=== PATIENT | female | born 2000 | race Caucasian/White ===

== ENCOUNTER 2023-03-09 16:17 | Emergency (ER) | payer OTHER, SELFPAY ==
--- NOTE | 2023-03-09 16:19 | ED.URI ---
HPI - URI/Sore Throat General Chief Complaint: Upper Respiratory Infection Stated Complaint: chest pain/sob/headache/sore throat Time Seen by Provider: 03/09/23 16:18 Source: patient Mode of arrival: ambulatory Limitations: no limitations History of Present Illness HPI Narrative: Radha is a 22-year-old female patient presenting to the clinic today with complaints of chest heaviness, shortness of breath, headache, and sore throat x3 days. She reports no fever or chills. Cough is nonproductive. States that her chest discomfort is a 6/10 and the shortness of breath is about a 4 to 5/10. Denies any nasal congestion or palpitations. History of asthma as a child. States she has had this before and has been to the ER twice for her chest heaviness and shortness of breath and she is supposed to follow up with a warrant server and wear a Holter monitor. MD elicited complaint: sore throat and nasal congestion Related Data Allergies Allergy/AdvReac Type Severity Reaction Status Date / Time pineapple Allergy Severe Anaphylactic Verified 03/09/23 16:47 Shock cefdinir Allergy Unknown Hives / Verified 03/09/23 16:47 Red Face Review of Systems Review of Systems: Pertinent positives per HPI. Patient denies any fever, chills, rash, visual changes, dizziness, palpitations, nausea, vomiting, diarrhea, constipation, abdominal pain, or any urinary issues. PMFSH Comments At the time of my signature, I reviewed and agree with the nursing past medical, surgical, social, and family history. There is no relevant family history pertinent to the patient complaint. Exam Narrative: General: Well-developed, well nourished, in no apparent distress Head: Normocephalic, atraumatic Eyes: Pupils equally round and reactive to light bilaterally, EOM intact, sclera and conjunctive clear, no discharge, lids normal Ears: TMs intact and clear, ear canals clear, no drainage, grossly hearing normal. Nose: Nares patent, no discharge, no inflammation, no sinus tenderness. Mouth: Oral pharynx red without lesions or masses, good dentition, MMM. Neck: Supple, trachea midline, no enlargement of anterior or posterior cervical nodes, no thyroid masses or goiter palpable. Cardio: Regular rate and rhythm, s1 and s2 normal, no murmur appreciated. Resp: Clear to auscultation bilaterally, no rhonchi, rales, wheezing or rubs Course Course Emergency Course: Portions of this record may have been created with voice recognition software. Level of Care: Express Care Visit Vital Signs Vital signs: Vital signs reviewed MDM - URI/Sore Throat MDM Narrative Medical decision making narrative: At the time of visit patient is resting comfortably on exam table. EKG was performed and is normal sinus rhythm heart rate 86 beats per minute without ectopy. No ST elevation, ST depression, or T-wave inversion noted. Strep and COVID testing was performed and were negative in the clinic today. We will send strep for culture. Patient is nontoxic appearing-does not seem to be in any respiratory distress. Reports chest heaviness and some shortness of breath. History of asthma as a child. Lung sounds were clear in the office today however will send in a prescription for an albuterol inhaler. I suspect patient may have viral syndrome. Supportive measures were discussed with the mother and the patient they voiced understanding discharge instructions and agrees to treatment plan. Differential Diagnosis Differential diagnosis: Likely upper respiratory infection, otitis media, sinusitis, viral infection, bronchitis, influenza, pharyngitis and other (COVID) ECG Data EKG #1: Attestation: I personally reviewed and interpreted this ECG as follows: ECG completion date: 03/09/23 ECG completion time: 16:42 Prior ECG tracings: not available for review Interpretation: EKG shows normal sinus rhythm with heart rate of 86 beats per minute. LA interval is 14
[2023-03-09 16:25] VITALS: BP 116/65; PULSE 96; RESP 20; TEMP 36.8; O2SAT 100
--- NOTE | 2023-03-09 16:38 | ECG_ITS ---
Measurements Intervals [place] Rate: 86 P: 70 MI: 142 QRS: 64 QRSD: 79 T: 52 QT: 333 QTc: 398 Interpretive Statements SINUS RHYTHM BASELINE ARTIFACT- II, III NORMAL ECG NO PREVIOUS ECG AVAILABLE FOR COMPARISON Electronically Signed On 03-10-2023 8:42:21 RAVELER by Carlos Gonzalez D.O.
== END 2023-03-09 16:56 | disposition home or self-care (01) ==
LOC: EXPBETH 16:24
PROVIDERS: Emergency Provider Nurse Practitioner Family; PCP Physician Assistant
DX: B34.9 Viral infection, unspecified (principal); J02.9 Acute pharyngitis, unspecified; Z20.822 Contact with and (suspected) exposure to COVID-19
CPT/HCPCS: 87081; 87426; 87880; 93005; 99203; C9803; G0463

== ENCOUNTER 2023-03-30 08:47 | Emergency (ER) | payer OTHER, SELFPAY ==
[2023-03-30 08:55] VITALS: BP 102/47; PULSE 135; RESP 18; TEMP 38.2; O2SAT 100
--- NOTE | 2023-03-30 09:35 | ED.URI ---
HPI - URI/Sore Throat General Chief Complaint: Upper Respiratory Infection Stated Complaint: Fever/Cough/Sore Throat Time Seen by Provider: 03/30/23 09:30 Source: patient, RN notes reviewed and old records reviewed Mode of arrival: ambulatory Limitations: no limitations History of Present Illness HPI Narrative: 22-year-old female who presents to [facility] with day 2 symptoms sore throat, headache, cough,body aches, and high fever. Patient reports that she has been taking Advil cold and flu and also some Tylenol for her fever with highest noted 102F. Patient denies any nausea and vomiting,or diarrhea. Patient denies any shortess of breath or any wheezing. MD elicited complaint: fever, cough, sore throat, rhinorrhea, nasal congestion and other (body aches) Onset (ago): day(s) (2) Pain scale (0-10): 9 Able to tolerate fluids by mouth: Yes Treatments prior to arrival: acetaminophen, ibuprofen and other (cold and flu) Related Data Home Medications Medication Instructions Recorded Confirmed No Home Medications 03/30/23 03/30/23 Allergies Allergy/AdvReac Type Severity Reaction Status Date / Time pineapple Allergy Severe Anaphylactic Verified 03/30/23 09:26 Shock cefdinir Allergy Unknown Hives / Verified 03/30/23 09:26 Red Face Review of Systems Review of Systems: CONSTITUTIONAL: Reports malaise, chills, sweats, or fever. EYES: Denies visual changes, redness, or discharge. ENT: Reports rhinorrhea, congestion, sinus pain, no otalgia and positive for sore throat. CARDIOVASCULAR: Denies chest pain, palpitations, or edema. RESPIRATORY: Reports cough.? Denies dyspnea. GASTROINTESTINAL: Denies abdominal pain, nausea, vomiting, diarrhea SKIN: Denies rash or itching. MUSCULOSKELETAL: reports myalgia. NEUROLOGIC: Reports headache. All systems reviewed & are unremarkable except as noted in HPI and below PMFSH Past Medical History Medical History (Updated 03/31/23 @ 21:03 by Cher Sanabria NP) Asthma Hx of migraines Social History Social History (Updated 03/31/23 @ 21:04 by Cher Sanabria NP) Smoking status: Current every day smoker Tobacco type: e-cigarettes/vaping Alcohol intake: unknown Substance use type: does not use Gender identity (if verbalized by the patient): Female Comments At time of signature, agree with nursing past medical, surgical, social and family history. There is no relevant family history pertinent to the presenting complaint Exam Narrative: GENERAL: Well-appearing, well-nourished, and in no acute distress. HEAD: Normocephalic EYES: PERRLA, conjunctivae clear ENT: Nares clear, turbinates edematous and erythematous, clear discharge. Mucous membranes moist. TM pearly hermosillo with dull light reflex bilaterally; no tragal tenderness. Oropharynx erythematous without lesions. Tonsils not enlarged and without exudate, no drooling, no hoarseness, no trismus, uvula midline.post nasal drainage NECK: Supple. No lymphadenopathy CHEST: Clear to auscultation, breath sounds equal. No wheezing, rhonchi, rales, or stridor. No respiratory distress, speaks in full sentences.cough,SAO2 100% on room air HEART: Regular rate and rhythm. No murmur heard. SKIN: Warm, dry, no rash. NEURO: Alert and oriented x3. PSYCH: Normal mood and affect Course Course Emergency Course: Patient is aware of diagnosis, understands and agrees to treatment plan.? Anticipatory guidance given.? Patient agrees to follow-up as directed and is aware of reasons to seek care at the emergency department. Portions of this record may have been created with voice recognition software Level of Care: Express Care Visit Vital Signs Vital signs: Vital Signs Temperature 38.2 C H 03/30/23 08:55 Pulse Rate 135 H 03/30/23 08:55 Respiratory Rate 18 03/30/23 08:55 Blood Pressure 102/47 L 03/30/23 08:55 Pulse Oximetry 100 03/30/23 08:55 Oxygen Delivery Room Air
== END 2023-03-30 09:45 | disposition home or self-care (01) ==
PROVIDERS: Emergency Provider Registered Nurse; PCP Physician Assistant
DX: J10.1 Influenza due to other identified influenza virus with other respiratory manifestations (principal); J45.909 Unspecified asthma, uncomplicated; F17.290 Nicotine dependence, other tobacco product, uncomplicated
CPT/HCPCS: 87804; 99213; G0463

== ENCOUNTER 2024-09-27 08:32 | Emergency (ER) | payer OTHER, SELFPAY ==
--- NOTE | ~2024-09-27 | XR_ITS ---
XR elbow LT min 3V 09/27/2024 09:01 Indication: Left elbow pain Procedure: 4 views left elbow Comparison: No prior studies for comparison. Findings: There is anatomic alignment. No fracture, subluxation or dislocation. No soft tissue abnorm ality. No foreign bodies. No joint effusion. Impression: 1: No acute bone or joint abnormality. Reviewed, dictated and finalized at location [] Impression: 1: No acute bone or joint abnormality.
--- NOTE | 2024-09-27 08:34 | ED.UPPEXIN ---
HPI - Extremity Injury (Upper) General Chief Complaint: Extremity Injury, Upper Stated Complaint: Fall Injury/Left Elbow Time Seen by Provider: 09/27/24 08:34 Source: patient Mode of arrival: ambulatory Limitations: no limitations History of Present Illness HPI narrative: Juanita is a 24 year old female patient presenting to the clinic today with c/o left elbow injury s/p fall. She reports she was doing some hand stands on a [employer] bar and her arms gave out. States she landed on the left elbow and rolled onto her left back. Denies any back pain but is reporting some lateral elbow pain that is shooting down into her forearm. Rates pain currently a 7/10. 10/10 with movement. Took ibuprofen last night but has not taken anything for pain today. Related Data Home Medications ?Medication ?Instructions ?Recorded ?Confirmed ?Last Taken ?Type metoprolol succinate 25 mg mg PO 09/27/24 Unknown History tablet,extended release 24 hr Allergies Allergy/AdvReac Type Severity Reaction Status Date / Time pineapple Allergy Severe Anaphylactic Verified 09/27/24 08:44 Shock cefdinir Allergy Unknown Hives / Verified 09/27/24 08:44 Red Face Review of Systems Review of Systems: Pertinent positives per HPI. Patient denies any fever, chills, rash, headache, visual changes, dizziness, cough, runny nose, sore throat, shortness of breath, chest pain, palpitations, nausea, vomiting, diarrhea, constipation, abdominal pain, or any urinary issues. PMFSH Past Medical History Medical History Irregular heart beats Hx of migraines Asthma Social History Social History Smoking status: Current every day smoker Tobacco type: e-cigarettes/vaping Alcohol intake: unknown Substance use type: does not use Gender identity (if verbalized by the patient): Female Comments At the time of my signature, I reviewed and agree with the nursing past medical, surgical, social, and family history. There is no relevant family history pertinent to the patient complaint. Exam Narrative: General: Well-developed, well nourished, in no apparent distress Head: Normocephalic, atraumatic. Cardio: Regular rate and rhythm, s1 and s2 normal, no murmur appreciated. Resp: Clear to auscultation bilaterally, no rhonchi, rales, wheezing or rubs. Musculoskeletal: No deformity, left lateral elbow tenderness to palpation, mild swelling, limited flexion and extension due to pain, muscle strength strong and equal, peripheral pulse strong, no edema, no cyanosis, normal gait and station Course Course Emergency Course: Portions of this record may have been created with voice recognition software. Level of Care: Express Care Visit Vital Signs Vital signs: Vital Signs Temperature 36.5 C 09/27/24 08:35 Pulse Rate 92 09/27/24 08:35 Respiratory Rate 16 09/27/24 08:35 Blood Pressure 123/73 09/27/24 08:35 Pulse Oximetry 100 09/27/24 08:35 Oxygen Delivery Room Air 09/27/24 08:35 Temperature 36.5 C 09/27/24 08:35 Pulse Rate 92 09/27/24 08:35 Respiratory Rate 16 09/27/24 08:35 Blood Pressure 123/73 09/27/24 08:35 Pulse Oximetry 100 09/27/24 08:35 Oxygen Delivery Room Air 09/27/24 08:35 Vital signs reviewed MDM - Extremity Injury (Upper) MDM Narrative Medical decision making narrative: At the time of visit patient is resting comfortably on the exam table. Patient appears to be nontoxic. Diagnostics: X-ray of the left elbow was performed. X-rays were negative for any fracture or malalignment. Plan: I suspect patient has a left elbow contusion. Dominik wrap, ice pack, and arm sling was given. Supportive measures were discussed with the patient and they voiced understanding discharge instructions and agrees to treatment plan. Return precautions reviewed Differential Diagnosis Differential diagnosis: Likely other (olecranon fracture, radial fracture, ulna fracture, elbow contusion, elbow sprain, humerus fracture) Discharge Plan Discharge Clinical Impression: Contusion of elbow Qualifiers: Encounter type: initial encounter Laterality: left Qualified Code(s): S50.02XA - Contusion of left elbow, initial encounter Patient Disposition: Home Condition: Stable Instructions: Antibiotic Form, Contusion in Adults (ED) Additional Instructions: X-ray of the left elbow is negative for any sign of fracture or malalignment. Rest, ice, elevate, and wear dominik wrap and arm sling as directed Tylenol/motrin for pain as discussed. No use of the left arm x3 days-may take arm out a sling to perform range of motion to the left elbow Follow up with your PCP if symptoms persist more than 1 week. Patient Language: Greenlandic Prescriptions: No Action metoprolol succinate 25 mg tablet extended release 24 hr PO Follow-up/Referrals: Mona,DESTINEE Bearden [Primary Care Provider] - Stand Alone Forms: Work/School Release IP Time of Disposition: 09:13 Quality NIHSS Nursing Documentation ED NIHSS nursing documentation: reviewed/agree
[2024-09-27 08:35] VITALS: BP 123/73; PULSE 92; RESP 16; TEMP 36.5; O2SAT 100
--- OUTSIDE RECORDS SUMMARY | 2024-09-27 08:44 | XMS_ITS | Clinical Summary ---
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 10 Tab 0 05/25/2016 Active Social History Tobacco Use Types Packs/Day Years Used Date Smoking Tobacco: Never Tobacco Cessation:Counseling Given: Not Answered Alcohol Use Standard Drinks/Week Comments Not Currently 0 (1 standard drink = 0.6 oz pur e alcohol) occasional Comments No Sex and Gender Information Value Date Recorded Sex Assigned at Not on file Legal Sex Female 7:44 PM CDT Gender Identity Not on file Sexual Orientation Not on file Last Filed Vital Signs Vital Sign Reading Time Taken Comments Blood Pressure 108/75 03/31/2023 5:37 PM SCALEMAKER Pulse 108 03/31/2023 5:37 PM SCALEMAKER Temperature 36.1 C (96.9 F) 03/31/2023 5:37 PM SCALEMAKER Respiratory Rate 20 03/31/2023 5:37 PM SCALEMAKER Oxygen Saturation 100% 03/31/2023 5:37 PM SCALEMAKER Inhaled Oxygen Concentration - - Weight 49 kg (108 lb) 03/31/2023 5:37 PM SCALEMAKER Height 157.5 cm (5' 2) 03/31/2023 5:37 PM SCALEMAKER Body Mass Index 19.75 03/31/2023 5:37 PM SCALEMAKER Plan of Treatment Health Maintenance Due Date Last Done Comments Hepatitis C Virus (HCV) Screening 2002 Meningococcal B Immunization (1 of 2 - Standard) 2018 Pap Smear 09/18/2023 SARS-COV-2 Immunization (3 - season) 2023 05/25/2021, 01/05/2021 Influenza Immunization (Season Ended) 2024 01/16/2018, 02/14/2017, 02/05/2016, Additional history exists Respiratory Syncytial Virus (RSV) Immunization (Adult) (1 - 1-dose 75+ series) 2077 Hepatitis B Immunization Completed 003, 02/06/2003, 2002, Additional history exists Measles Mumps Rubella (MMR) Immunization Discontinued 11/29/2006, 10/29/2003 Pneumococcal Immunization Combined Aged Out 11/29/2006, 12/02/2004, 03/26/2003, Additional history exists No longer eligible based on patient's age to complete this topic Polio (IPV) Immunization Discontinued 007, 03/26/2003, 02/06/2003, Additional history exists Varicella Immunization Discontinued 11/29/2006, 2003 DTaP/Tdap/Td Immunization Discontinued 2013, 11/29/2006, 07/28/2004, Additional history exists Human Papillomavirus (HPV) Immunization Completed 12/20/2013, 07/03/2013, 01/26/2013 Meningococcal Immunization (ACWY) Aged Out 12/20/2013 No longer eligible based on patient's age to complete this topic TdaP Immunization Completed 12/20/2013 Hepatitis A Immunization Discontinued 015, 07/03/2013, 01/26/2013 Rotavirus Immunization Aged Out No lo nger eligible based on patient's age to complete this topic Insurance MEDICAID [employer] [facility] Care Teams [employer]ine Rental Clerk Relationship Specialty Start Date End Date Kait Morales MD [address] [place] [address] PCP - General Pediatrics 08/10/15
== END 2024-09-27 09:18 | disposition home or self-care (01) ==
PROVIDERS: Emergency Provider Nurse Practitioner Family; PCP Physician Assistant
DX: S50.02XA Contusion of left elbow, initial encounter (principal); W17.89XA Other fall from one level to another, initial encounter; J45.909 Unspecified asthma, uncomplicated; F17.290 Nicotine dependence, other tobacco product, uncomplicated
CPT/HCPCS: 73080; 99213; A4565; G0463